=== PATIENT | male | born 1965 | race American Indian/Alaskan Native ===

== ENCOUNTER 2018-10-29 20:48 | Emergency (ER) | payer SELFPAY ==
[2018-10-29 21:11] VITALS: BP 114/79
[2018-10-29] MEDS ORDERED: DECADRON IM ONE (21:11)
[2018-10-29] MEDS ORDERED: VISTARIL PO ONE (21:11)
[2018-10-29] MEDS ORDERED: PEPCID PO ONE (21:11)
--- NOTE | 2018-10-29 21:11 | Emergency Department Report ---
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 HE SAID THEY WERE [place] LIKE. NO ONE IN HOME WITH. ITCHY. NO OTHER COMPLAINTS. NO SOB. NO CP ED Review of Systems ROS: Stated complaint: BITESON ARMS AND STOMACH Other details as noted in HPI Comment: All other systems reviewed and negative ED Past Medical Hx - Past Medical History Previous Medical History?: Yes Hx Diabetes: Yes - Surgical History Past Surgical History?: No - Family History Family history: no significant - Social History Smoking Status: Never Smoker Substance Use Type: None - Medications Home Medications: Home Medications Medication Instructions Recorded Confirmed Last Taken Type Cetirizine HCl [ZyrTEC] 10 mg PO DAILY #30 capsule 10/29/18 Unknown Rx hydrOXYzine PAMOATE [Vistaril] 25 mg PO Q6HR PRN #20 capsule 10/29/18 Unknown Rx predniSONE [Deltasone] 20 mg PO DAILY #5 tablet 10/29/18 Unknown Rx Rash Exam - Exam General: Vital signs noted. No distress. Alert and acting appropriately. HEENT: No Periorbital Edema, No Conjuctival Injection, No Chemosis Lungs: Yes Good Air Exchange, No Wheezes Heart: Yes Regular, No Murmur Skin: Yes Maculopapular Rash Other: Positive: Abdomen Normal, Neurologic Normal, Musculoskeletal Normal ED Course Vital Signs 10/29/18 21:07 Temperature 98.6 F Pulse Rate 73 Respiratory 18 Rate Blood Pressure 114/79 O2 Sat by Pulse 99 Oximetry ED Medical Decision Making - Medical Decision Making SIMPLE RASH KNOWN BIT BY INSECTS WHILE WORKING ON ROOF NO ONE IN HOME WITH SAME NO ORAL OR OCULAR SYMPTOMS VSS ABC INTACT MEDICATED DC HOME WITH DC PLAN OF CARE. Vital Signs 10/29/18 21:07 Temperature 98.6 F Pulse Rate 73 Respiratory 18 Rate Blood Pressure 114/79 O2 Sat by Pulse 99 Oximetry - Differential Diagnosis SCABIES V BEDBUGS V INSECT BITES Critical care attestation.: If time is entered above; I have spent that time in minutes in the direct care of this critically ill patient, excluding procedure time. ED Disposition Clinical Impression: Insect bite Disposition: DC- TO HOME OR SELFCARE Is pt being admited?: No Does the pt Need Aspirin: No Condition: Stable Instructions: Insect Bite or Sting (ED) Additional Instructions: MEDS ORDERED COOL BATHS DIET AND ACTIVITY TOLERATED FOLLOW UP WITH DERM MD IF PERSISTS REFERRAL BELOW Prescriptions: predniSONE [Deltasone] 20 mg PO DAILY #5 tablet hydrOXYzine PAMOATE [Vistaril] 25 mg PO Q6HR PRN #20 capsule PRN Reason: Itching Cetirizine HCl [ZyrTEC] 10 mg PO DAILY #30 capsule Referrals: SU IQBAL MD [Referring] - 3-5 Days Time of Disposition: 21:17
== END 2018-10-29 21:54 | disposition home or self-care (01) ==
LOC: ED 20:48
DX: S40.862A Insect bite (nonvenomous) of left upper arm, initial encounter (principal); S40.861A Insect bite (nonvenomous) of right upper arm, initial encounter; S30.861A Insect bite (nonvenomous) of abdominal wall, initial encounter; E11.9 Type 2 diabetes mellitus without complications; W57.XXXA Bitten or stung by nonvenomous insect and other nonvenomous arthropods, initial encounter; Y93.89 Activity, other specified; Y92.89 Other specified places as the place of occurrence of the external cause; Y99.8 Other external cause status
CPT/HCPCS: 96372; 99282; J1100; Q0177